=== PATIENT | female | born 1975 | race Two or more races ===

== ENCOUNTER → 2024-07-01 | Outpatient (CLI) | payer MEDICAID, SELFPAY ==
--- NOTE | 2024-07-01 15:45 | XR_ITS ---
Examination: Screening digital mammography, bilateral Computer aided detection 3-D breast Tomosynthesis, bilateral Date and time of exam: July 01, 2024 1530 hrs. Comparison September 18, 2020 Indication: Screening Technique: Nonmagnified MLO, CC views of the breasts to been obtained, reconstructed from 3-D Tomosynthesis images. R2 computer aided detection program utilized for evaluation of suspicious masses and/or abnormal calcifications. 3-D Tomosynthesis images obtained. Findings: The breasts are heterogeneously dense, which may obscure small masses Intact implants No interval suspicious masses Impression: BI-RADS category II: Benign Findings. Recommend 1 year follow-up mammogram.
== END | disposition home or self-care (01) ==
PROVIDERS: Referring Provider Physician Assistant Medical; Visit Provider Physician Assistant Medical
DX: Z12.31 Encounter for screening mammogram for malignant neoplasm of breast (principal); R92.323 Mammographic fibroglandular density, bilateral breasts; R92.1 Mammographic calcification found on diagnostic imaging of breast
CPT/HCPCS: 77063; 77067

== ENCOUNTER 2024-11-10 11:45 | Day surgery (SDC) | payer MEDICAID, SELFPAY ==
[2024-11-09 13:48] VITALS: BMI 28.9
[2024-11-09 15:58] LABS: HCG Qualitative,Urine Negative
[2024-11-10] VITALS (12 sets, daily range): BP systolic 130–173; BP diastolic 74–99; PULSE 60–74; RESP 11–16; TEMP 36.3–36.7; O2SAT 96–100; BMI 28.7
[2024-11-10] MEDS: RINGERS LACTATED 1000 ML 1,000 ML 100 ML IV (13:19)
[2024-11-10] MEDS: MIDAZOLAM INJ 1 MG/ML VIAL 2 ML (ASD USE ONLY) 2 MG IVP (13:22)
[2024-11-10] MEDS: fentaNYL CIT INJ 50 mCg/ML AMP 2ML (ASD USE ONLY) IVP (13:30)
[2024-11-10] MEDS: DiphenhydrAMINE INJ 50 MG/ML VIAL 25 MG IVP (13:31)
== END 2024-11-10 15:00 | disposition home or self-care (01) ==
PROVIDERS: Anesthesiology; Referring Provider Surgery; Visit Provider Surgery
PROC: 0DBE8ZX Excision of Large Intestine, Via Natural or Artificial Opening Endoscopic, Diagnostic (ICD-10-PCS; CPT 45380; principal; 2024-11-10 13:00)
DX: Z12.11 Encounter for screening for malignant neoplasm of colon (principal); Z80.0 Family history of malignant neoplasm of digestive organs
CPT/HCPCS: 45380; 45385; 81025; J1200; J2250; J3010; J7120